=== PATIENT | male | born 1975 | race Caucasian/White ===

== ENCOUNTER 2018-12-20 22:10 | Emergency (ER) | payer MEDICAID, OTHER ==
[2018-12-20] MEDS: LIDOCAINE 1% (MPF) 5 ML VIAL INJ (23:39)
[2018-12-21] MEDS: DIPHTH/TET/ACEL PERTUSS (ADULT) 0.5 ML VIAL IM* (00:28)
== END 2018-12-21 02:01 | disposition home or self-care (01) ==
LOC: FTE 12-21 02:01
DX: S62.635A Displaced fracture of distal phalanx of left ring finger, initial encounter for closed fracture (principal); S61.217A Laceration without foreign body of left little finger without damage to nail, initial encounter; W20.8XXA Other cause of strike by thrown, projected or falling object, initial encounter; Y92.9 Unspecified place or not applicable; Z23 Encounter for immunization
CPT/HCPCS: 12001; 73130-LT; 90471; 90715; 99283-25

== ENCOUNTER 2018-12-31 20:28 | Emergency (ER) | payer MEDICAID | END 2018-12-31 22:25 | disposition home or self-care (01) | LOC: FTE 20:28 | DX: Z48.02 Encounter for removal of sutures (principal); F17.210 Nicotine dependence, cigarettes, uncomplicated | CPT/HCPCS: 99281; Z7502 ==